=== PATIENT | male | born 1980 | race Caucasian/White ===

== ENCOUNTER → 2016-08-17 | Outpatient (CLI) | payer BC ==
--- NOTE | 2016-08-17 15:07 | CR ---
EXAMINATION: Left foot HISTORY: Osteomyelitis COMPARISON: 08/02/2016 TECHNIQUE: 3 views FINDINGS: There is a stable chronic fracture deformity of the cuneiforms with widening of the inters pace of the first and second metatarsals. Numerous osseous erosions and periosteal new bone formatio n noted within the region of the old screw hardware. Overall there is moderate adjacent soft tissue swelling, grossly unchanged. Osseous fragments project along the dorsal aspect of the midfoot also u nchanged. IMPRESSION: 1. Stable Osseous erosions, bone fragments, and chronic fracture deformities consistent with underly ing changes secondary to osteomyelitis.
== END ==
LOC: MW.CHORTHO 09:54
PROVIDERS: ATTEND Physician Assistant
DX: M86.9 Osteomyelitis, unspecified (principal); L02.612 Cutaneous abscess of left foot
CPT/HCPCS: 73630-26-LT; 73630-LT